=== PATIENT | female | born 1935 | race Caucasian/White ===

== ENCOUNTER 2017-04-29 11:42 | Outpatient (CLI) | payer MEDICARE, OTHER ==
[2017-04-29 12:42] LABS: INR 3.1 (0.8-1.2); PT - PROTHROMBIN TIME 35.2 secs (9.9-12.6)
== END 2017-04-29 11:43 | disposition home or self-care (01) ==
LOC: LAB 11:42
PROVIDERS: ATTEND Internal Medicine Cardiovascular Disease
DX: I48.91 Unspecified atrial fibrillation (principal)
CPT/HCPCS: 36415; 85610